=== PATIENT | female | born 1950 | race Caucasian/White ===

== ENCOUNTER 2016-09-29 16:51 | Emergency (ER) | payer OTHER | END 2016-09-29 17:50 | disposition home or self-care (01) | LOC: ER1 16:51 | DX: L03.115 Cellulitis of right lower limb (principal); E78.00 Pure hypercholesterolemia, unspecified; Z88.0 Allergy status to penicillin; Z88.2 Allergy status to sulfonamides; Z79.899 Other long term (current) drug therapy; W01.0XXA Fall on same level from slipping, tripping and stumbling without subsequent striking against object, initial encounter | CPT/HCPCS: 99283 ==

== ENCOUNTER 2016-10-03 17:10 | Emergency (ER) | payer OTHER | END 2016-10-03 18:55 | disposition home or self-care (01) | LOC: ER1 17:10 | DX: S62.231A Other displaced fracture of base of first metacarpal bone, right hand, initial encounter for closed fracture (principal); Z88.0 Allergy status to penicillin; Z88.2 Allergy status to sulfonamides; W18.39XA Other fall on same level, initial encounter; Y92.009 Unspecified place in unspecified non-institutional (private) residence as the place of occurrence of the external cause | CPT/HCPCS: 29125; 73090; 73110; 73130; 99283 ==

== ENCOUNTER → 2020-05-23 | Outpatient (CLI) | payer OTHER ==
[~2020-05-23] MED LIST: CRESTOR10 MG PO; CRESTOR5 MG PO; ELIQUIS2.5 MG PO; MOBIC15 MG PO; MOBIC7.5 MG PO; ZOFRAN4 MG PO
== END ==
LOC: MRI 10:07
DX: R22.2 Localized swelling, mass and lump, trunk (principal); M51.36 Other intervertebral disc degeneration, lumbar region; M47.816 Spondylosis without myelopathy or radiculopathy, lumbar region; M51.27 Other intervertebral disc displacement, lumbosacral region; M51.26 Other intervertebral disc displacement, lumbar region; M48.061 Spinal stenosis, lumbar region without neurogenic claudication; M48.07 Spinal stenosis, lumbosacral region
CPT/HCPCS: 36415; 72158; 82565; A9577

== ENCOUNTER → 2021-01-12 | Outpatient (CLI) | payer OTHER | LOC: MAMO 09:42 | DX: Z12.31 Encounter for screening mammogram for malignant neoplasm of breast (principal); Z90.710 Acquired absence of both cervix and uterus; Z80.3 Family history of malignant neoplasm of breast | CPT/HCPCS: 77063; 77067 ==

== ENCOUNTER → 2021-05-22 | Outpatient (CLI) | payer OTHER | LOC: US 12:52 | DX: N63.20 Unspecified lump in the left breast, unspecified quadrant (principal) | CPT/HCPCS: 76641-LT ==

== ENCOUNTER → 2021-07-13 | Outpatient (CLI) | payer OTHER | LOC: KOH-I 08:14 | DX: J32.0 Chronic maxillary sinusitis (principal) | CPT/HCPCS: 70486 ==

== ENCOUNTER 2021-08-04 12:19 | Emergency (ER) | payer OTHER | END 2021-08-04 14:00 | disposition home or self-care (01) | LOC: ER1 12:19 | DX: S56.405A Unspecified injury of extensor muscle, fascia and tendon of right ring finger at forearm level, initial encounter (principal); Z88.0 Allergy status to penicillin; Z88.2 Allergy status to sulfonamides; X58.XXXA Exposure to other specified factors, initial encounter | CPT/HCPCS: 73130; 99283 ==

== ENCOUNTER → 2021-08-27 | Outpatient (CLI) | payer OTHER | LOC: EXRD 08-26 11:30 | DX: R60.9 Edema, unspecified (principal) | CPT/HCPCS: 93971 ==

== ENCOUNTER → 2021-09-16 | Outpatient (CLI) | payer OTHER | LOC: EXRD 09-03 11:00 → HEART 5 09-03 11:00 | DX: I35.1 Nonrheumatic aortic (valve) insufficiency (principal); R07.9 Chest pain, unspecified | CPT/HCPCS: 93306 ==

== ENCOUNTER → 2021-11-24 | Outpatient (CLI) | payer OTHER | LOC: KOH-I 08:28 | DX: M79.671 Pain in right foot (principal) | CPT/HCPCS: 73630 ==

== ENCOUNTER 2021-12-12 16:09 | Emergency (ER) | payer OTHER | END 2021-12-12 17:55 | disposition home or self-care (01) | LOC: ER1 16:09 | DX: S80.11XA Contusion of right lower leg, initial encounter (principal); X58.XXXA Exposure to other specified factors, initial encounter | CPT/HCPCS: 73590; 73600; 99283 ==

== ENCOUNTER 2021-12-20 16:31 | Emergency (ER) | payer OTHER | END 2021-12-20 22:10 | disposition home or self-care (01) | LOC: ER1 16:31 | DX: S80.12XA Contusion of left lower leg, initial encounter (principal); W22.8XXA Striking against or struck by other objects, initial encounter | CPT/HCPCS: 73590; 99283 ==

== ENCOUNTER → 2022-01-13 | Outpatient (CLI) | payer OTHER | LOC: MAMO 08:34 | DX: Z12.31 Encounter for screening mammogram for malignant neoplasm of breast (principal) | CPT/HCPCS: 77063; 77067 ==